=== PATIENT | female | born 1955 | race Caucasian/White ===

== ENCOUNTER → 2017-09-18 09:08 | Outpatient (CLI) | payer BC | END | disposition home or self-care (01) | LOC: D.RAD 09:08 | DX: K21.9 Gastro-esophageal reflux disease without esophagitis (principal); D64.9 Anemia, unspecified; K44.9 Diaphragmatic hernia without obstruction or gangrene ==

== ENCOUNTER 2017-10-08 08:03 | Outpatient (CLI) | payer BC | END 2017-10-08 09:25 | LOC: D.OPS 08:03 | DX: K21.9 Gastro-esophageal reflux disease without esophagitis (principal); R13.10 Dysphagia, unspecified ==

== ENCOUNTER 2018-02-04 08:35 | Inpatient (IN) | payer BC ==
[2018-02-03 09:54] LABS: BASOPHILS 0.6 % (0-2); EOSINOPHILS 1.6 % (0-7); HEMATOCRIT 40.5 % (36.0-48.0); HEMOGLOBIN 13.1 g/dL (12-16); IMMATURE GRANULOCYTES 0.2 % (0-5); LYMPHOCYTES 19.3 % (15-50); MCH 29.1 pg (26.0-34.0); MCHC 32.3 g/dL (31.0-37.0); MEAN PLATELET VOLUME 9.5 fL (7.4-10.4); MONOCYTES 9.9 % (2-11); NEUTROPHILS 68.4 % (40-80); PLATELET COUNT 301 10x3/uL (130-400); RDW 14.9 % (11.5-14.5); WBC 8.3 10x3/uL (4.8-10.8)
[2018-02-03 10:17] LABS: ANION GAP 10.2 mmol/L (8-16); CALCIUM 8.7 mg/dL (8.5-10.1); CREATININE - SERUM 1.1 mg/dL (0.6-1.3); POTASSIUM - SERUM 4.2 mmol/L (3.5-5.1)
[2018-02-04] VITALS (19 sets, daily range): BP systolic 82–133; BP diastolic 46–79; BMI 39.5; BMI 43.8
[~2018-02-04] VITALS: Ht 162.6 cm; Wt 104.5 kg
--- NOTE | ~2018-02-04 | OP ---
PATIENT NAME: ЕКАТЕРИНА GAITAN MEDICAL RECORD: [id number] :53 LOCATION:[facility] ADMISSION DATE:02/04/18 SURGEON: LONI RAMON MD DATE OF OPERATION: 02/04/2018 PREOPERATIVE DIAGNOSES: 1. Postoperative hypotension. 2. Acute anemia requiring blood transfusion. 3. Limited peripheral IV access. POSTOPERATIVE DIAGNOSES: 1. Postoperative hypotension. 2. Acute anemia requiring blood transfusion. 3. Limited peripheral IV access. PROCEDURE: Insertion of right internal jugular double-lumen central venous catheter. SURGEON: Loni Ramon MD RETAIL SALES SPECIALIST: None. BLOOD LOSS: Minimal. ANESTHESIA: Local. COMPLICATIONS: None. I was asked by the recovery room staff to place a central line as they were having difficulty obtaining a peripheral line and it appeared the patient is going to need a significant amount of intravenous fluids as well as blood products. OPERATIVE COURSE: The patient was positioned in the Trendelenburg position. The right neck was sterilely prepped and draped. A local anesthetic was used to infiltrate the skin and subcutaneous tissues at the base of the right neck. The right internal jugular vein was percutaneously accessed in an antegrade fashion. A guidewire passed easily. A small skin drew was accomplished. A vessel dilator was used to dilate the subcutaneous tract. A 16-cm double-lumen catheter was inserted to the hub. It was sutured in place times 3. All lumens flushed easily and aspirated dark, nonpulsatile blood. A stat portable chest x-ray will be obtained. I told the nursing staff that they could begin using the central venous line immediately. TRANSINT:[id number] Voice Confirmation ID: [id number] DOCUMENT ID: [id number] OPERATIVE REPORT [id number] ЕКАТЕРИНА GAITAN ROBERT MD at 1004 CC: [id number] DICTATION DATE: 02/07/18 0847 ENTRY LEVEL ELECTRICIAN: 02/07/18 0933 [facility] [place] [id number] [place] [address]
--- NOTE | ~2018-02-04 | OP ---
PATIENT NAME: ЕКАТЕРИНА GAITAN MEDICAL RECORD: [id number] :53 LOCATION:[facility] ADMISSION DATE:02/04/18 SURGEON: BEN HERNANDEZ MD DATE OF OPERATION: 02/04/2018 PREOPERATIVE DIAGNOSES: 1. Gastroesophageal reflux disease. 2. Hiatal hernia. 3. Arthritis. POSTOPERATIVE DIAGNOSES: 1. Gastroesophageal reflux disease. 2. Hiatal hernia. 3. Arthritis. PROCEDURE: Laparoscopic Keerthi with hiatal hernia repair. SURGEON: Ben Hernandez MD BOARDINGHOUSE KEEPER: Buffy Martin APRN REPORT OF PROCEDURE: The patient's abdomen was prepped and draped in sterile fashion. A Veress needle was inserted in the left upper quadrant and the abdomen was insufflated. An 11-mm Visiport trocar was then inserted in the midline just above the umbilicus. Under direct visualization, an 11-mm trocar was placed in the left lateral abdomen and a 5-mm trocar was placed in the epigastrium. The Veress needle was inspected and there was no sign of any injury to bowel or surrounding structures. A 5-mm trocar was then placed in the left lateral abdomen and a final 5-mm trocar was placed in the right lateral subcostal region. A liver retractor was inserted and the left lobe of the liver was elevated. At this point, the stomach could be easily seen progressing up through a large hiatal hernia into the chest. After we pulled this down, we noted there is about half the stomach or more, which was going through the hiatal hernia into the thoracic cavity. We began our dissection on the lesser curvature of the stomach, taking down the lesser omentum. We used Harmonic scalpel and continued our dissection up to the right side of the right indu. With release of the attachments to the right side and the right indu and began dissection of the hernia sac out of the chest cavity. We continued this dissection as far as we could go anteriorly and posteriorly. We then approached the greater curvature of the stomach and began taking down the short gastrics using Harmonic scalpel. We did this for the proximal third of the stomach. We continued this dissection to the left side of the right indu. Again, we released the attachments of the peritoneum of the hernia sac from the indu and we continued our dissection in the thoracic cavity, releasing the hernia sac. At this point, we had the hernia sac completely released. We then excised the hernia sac off of the superior aspect of the stomach. A posterior vagus nerve could be easily visualized and did not appear to be injured. I was never able to visualize the anterior vagus nerve. At this point, the stomach rested easily in the abdominal cavity along with 1 to 2 cm of the distal esophagus. We reapproximated the esophageal hiatus using interrupted 0 Polydeks times 5. There was good approximation of the tissue and did not appear to have a lot of tension. We then performed a 360-degree posterior wrap of the fundus of the stomach around the distal esophagus. This was performed with 0 Polydeks times 3 with the top and the bottom suture incorporating a bite of the esophagus. The wrap appeared to be in good position and did not appear to be too tight. An OPERATIVE REPORT [id number] ARNIEЕКАТЕРИНА indwelling OG tube was easily removed. At this point, we irrigated out the abdomen and assured there was no sign of any active bleeding. The liver retractor was then removed. We then closed the 11-mm trocar site fascias using interrupted 0 Vicryls using a Cl[place]is-Navneet suture passer device. The ports and insufflation were then removed. The wounds were then irrigated out with normal saline and the skin incisions were closed with subcutaneous 5-0 Monocryl and dressed appropriately. COMPLICATIONS: None. CONDITION: Stable. ANESTHESIA: General endotracheal and local. BLOOD LOSS: Minimal. TRANSINT:[id number] Voice Confirmation ID: [id number] DOCUMENT ID: [id number] BEN HERNANDEZ MD at 1041 CC: VICKIE WORLEY MD and RM BURTON [id number] DICTATION DATE: 02/04/18 1423 REPAIRER ENGINE PRODUCTION: 02/04/18 1440 ADM IN [facility] [address] [place] [address]
[~2018-02-04 08:35] MED LIST: CENTRUM SILVER1 TA1 PO; COLACE100 MG PO; EFFEXOR75 MG PO; FOLIC ACID1 MG PO; OMEPRAZOLE20 M1 PO; PEPCID20 MG PO; PRAVACHOL40 MG PO
[2018-02-04] MEDS ORDERED: MACROBID100 MG PO (09:29)
[2018-02-04] MEDS ORDERED: FISH OIL 1,0001 CA1 PO (09:30)
[2018-02-04] MEDS ORDERED: ATIVAN0.5 MG PO (09:31)
[2018-02-04 17:20] LABS: BASOPHILS 0.1 % (0-2); EOSINOPHILS 0.1 % (0-7); IMMATURE GRANULOCYTES 0.3 % (0-5); LYMPHOCYTES 8.1 % (15-50); MCV 90.7 fL (80.0-100.0); MEAN PLATELET VOLUME 9.7 fL (7.4-10.4); MONOCYTES 1.3 % (2-11); NEUTROPHILS 90.1 % (40-80); PLATELET COUNT 301 10x3/uL (130-400)
[2018-02-04 17:25] LABS: HEMATOCRIT 24.4 % (36.0-48.0); HEMOGLOBIN 7.8 g/dL (12-16); RBC 2.69 10x6/uL (4.00-5.40); WBC 18.7 10x3/uL (4.8-10.8)
[2018-02-04 18:00] LABS: CALCIUM 7.4 mg/dL (8.5-10.1); CARBON DIOXIDE 28.3 mmol/L (21.0-32.0); CHLORIDE - SERUM 107 mmol/L (98-107); CREATINE KINASE 84 UL (21-215); CREATININE - SERUM 1.2 mg/dL (0.6-1.3); SODIUM 140 mmol/L (136-145); UREA NITROGEN 17 mg/dL (7-18); eGFR NON AFRICAN AMERICAN 48 mL/min (90-120)
[2018-02-04 18:11] LABS: CALC OSMOLALITY 292 mosm/kg (275-300); GLUCOSE 311 mg/dL (74-106)
[2018-02-04 18:12] LABS: TROPONIN-I 0.062 ng/mL (0.000-0.060)
[2018-02-04 18:36] LABS: HEMATOCRIT 36.5 % (36.0-48.0); MCH 29.4 pg (26.0-34.0); MCHC 32.9 g/dL (31.0-37.0); MCV 89.5 fL (80.0-100.0); RBC 4.08 10x6/uL (4.00-5.40); RDW 14.2 % (11.5-14.5); WBC 23.1 10x3/uL (4.8-10.8)
[2018-02-05] VITALS (19 sets, daily range): BP systolic 93–139; BP diastolic 52–90; BMI 44.8
[2018-02-05 06:00] LABS: BASOPHILS 0.1 % (0-2); EOSINOPHILS 0 % (0-7); HEMATOCRIT 29.7 % (36.0-48.0); HEMOGLOBIN 9.8 g/dL (12-16); IMMATURE GRANULOCYTES 0.3 % (0-5); LYMPHOCYTES 5.5 % (15-50); MCH 29.3 pg (26.0-34.0); MCV 88.9 fL (80.0-100.0); MEAN PLATELET VOLUME 9.9 fL (7.4-10.4); MONOCYTES 10.2 % (2-11); NEUTROPHILS 83.9 % (40-80); PLATELET COUNT 217 10x3/uL (130-400); RBC 3.34 10x6/uL (4.00-5.40); RDW 15.4 % (11.5-14.5); WBC 17.9 10x3/uL (4.8-10.8)
[2018-02-05 06:35] LABS: CALCIUM 7.2 mg/dL (8.5-10.1); CARBON DIOXIDE 27.9 mmol/L (21.0-32.0); CHLORIDE - SERUM 109 mmol/L (98-107); CKMB 8.7 U/L (0.0-3.6); CREATININE - SERUM 1.3 mg/dL (0.6-1.3); SODIUM 144 mmol/L (136-145); UREA NITROGEN 19 mg/dL (7-18); eGFR NON AFRICAN AMERICAN 44 mL/min (90-120)
[2018-02-05 06:38] LABS: CALC OSMOLALITY 291 mosm/kg (275-300); CREATINE KINASE 326 UL (21-215); GLUCOSE 150 mg/dL (74-106); POTASSIUM - SERUM 4.9 mmol/L (3.5-5.1); TROPONIN-I 0.264 ng/mL (0.000-0.060)
[2018-02-05 16:00] LABS: HEMATOCRIT 28.4 % (36.0-48.0); HEMOGLOBIN 9.2 g/dL (12-16); MCH 29.3 pg (26.0-34.0); MCHC 32.4 g/dL (31.0-37.0); MCV 90.4 fL (80.0-100.0); MEAN PLATELET VOLUME 10.1 fL (7.4-10.4); RBC 3.14 10x6/uL (4.00-5.40); RDW 15.8 % (11.5-14.5)
[2018-02-06] VITALS (9 sets, daily range): BP systolic 97–134; BP diastolic 54–77
[2018-02-06 05:35] LABS: BASOPHILS 0.1 % (0-2); EOSINOPHILS 0 % (0-7); HEMOGLOBIN 7.6 g/dL (12-16); IMMATURE GRANULOCYTES 0.3 % (0-5); LYMPHOCYTES 11.3 % (15-50); MCH 29.7 pg (26.0-34.0); MCV 89.8 fL (80.0-100.0); MEAN PLATELET VOLUME 9.7 fL (7.4-10.4); MONOCYTES 11.3 % (2-11); RBC 2.56 10x6/uL (4.00-5.40); RDW 15.6 % (11.5-14.5); WBC 12.5 10x3/uL (4.8-10.8)
[2018-02-06 05:49] LABS: PLATELET COUNT 165 10x3/uL (130-400)
[2018-02-06 05:55] LABS: CALCIUM 7.7 mg/dL (8.5-10.1); CARBON DIOXIDE 30.8 mmol/L (21.0-32.0)
[2018-02-06 05:57] LABS: POTASSIUM - SERUM 3.8 mmol/L (3.5-5.1)
[2018-02-07] VITALS (12 sets, daily range): BP systolic 101–153; BP diastolic 59–92
[2018-02-07 06:40] LABS: BASOPHILS 0.1 % (0-2); EOSINOPHILS 0.3 % (0-7); HEMATOCRIT 30.8 % (36.0-48.0); IMMATURE GRANULOCYTES 0.4 % (0-5); LYMPHOCYTES 8.7 % (15-50); MCH 28.7 pg (26.0-34.0); MCHC 32.5 g/dL (31.0-37.0); MCV 88.5 fL (80.0-100.0); MONOCYTES 11.1 % (2-11); NEUTROPHILS 79.4 % (40-80); PLATELET COUNT 164 10x3/uL (130-400); RBC 3.48 10x6/uL (4.00-5.40); RDW 15.5 % (11.5-14.5)
[2018-02-07 07:02] LABS: ANION GAP 7.8 mmol/L (8-16); CALCIUM 8.4 mg/dL (8.5-10.1); CREATININE - SERUM 0.9 mg/dL (0.6-1.3); POTASSIUM - SERUM 3.8 mmol/L (3.5-5.1)
[2018-02-07 13:43] LABS: TROPONIN-I 0.074 ng/mL (0.000-0.060)
[2018-02-07 14:04] LABS: CKMB 1.3 U/L (0.0-3.6); CREATINE KINASE 232 UL (21-215)
[2018-02-07 14:47] LABS: HEMOGLOBIN 10.4 g/dL (12-16); MCHC 32.5 g/dL (31.0-37.0); MCV 89.1 fL (80.0-100.0); MEAN PLATELET VOLUME 9.9 fL (7.4-10.4); RBC 3.59 10x6/uL (4.00-5.40); RDW 15.2 % (11.5-14.5); WBC 12.9 10x3/uL (4.8-10.8)
[2018-02-07 14:48] LABS: APTT 29.4 SECONDS (22.8-39.4); INR 1.04 (0.85-1.17); PROTIME 13.2 SECONDS (11.6-15.0)
[2018-02-07 15:43] LABS: HEMOGLOBIN 10.1 g/dL (12-16); MCH 29.1 pg (26.0-34.0); MCHC 32.6 g/dL (31.0-37.0); MCV 89.3 fL (80.0-100.0); MEAN PLATELET VOLUME 9.7 fL (7.4-10.4); RBC 3.47 10x6/uL (4.00-5.40); RDW 15.1 % (11.5-14.5); WBC 12.9 10x3/uL (4.8-10.8)
[2018-02-07 15:55] LABS: INR 1.06 (0.85-1.17); PROTIME 13.4 SECONDS (11.6-15.0)
[2018-02-07 15:56] LABS: APTT 28.5 SECONDS (22.8-39.4)
[2018-02-08] VITALS (24 sets, daily range): BP systolic 101–144; BP diastolic 57–83
[2018-02-08 05:43] LABS: BASOPHILS 0 % (0-2); EOSINOPHILS 0 % (0-7); HEMATOCRIT 29.9 % (36.0-48.0); HEMOGLOBIN 9.7 g/dL (12-16); IMMATURE GRANULOCYTES 0.3 % (0-5); LYMPHOCYTES 8.1 % (15-50); MCHC 32.4 g/dL (31.0-37.0); MCV 89.5 fL (80.0-100.0); MEAN PLATELET VOLUME 9.6 fL (7.4-10.4); MONOCYTES 7.4 % (2-11); NEUTROPHILS 84.2 % (40-80); PLATELET COUNT 185 10x3/uL (130-400); RBC 3.34 10x6/uL (4.00-5.40); RDW 14.8 % (11.5-14.5); WBC 12.9 10x3/uL (4.8-10.8)
[2018-02-08 06:06] LABS: CALC OSMOLALITY 280 mosm/kg (275-300); CALCIUM 8.5 mg/dL (8.5-10.1); CARBON DIOXIDE 34.4 mmol/L (21.0-32.0); CHLORIDE - SERUM 104 mmol/L (98-107); CREATININE - SERUM 0.8 mg/dL (0.6-1.3); GLUCOSE 115 mg/dL (74-106); POTASSIUM - SERUM 3.6 mmol/L (3.5-5.1); SODIUM 140 mmol/L (136-145); UREA NITROGEN 16 mg/dL (7-18); eGFR NON AFRICAN AMERICAN 76 mL/min (90-120)
[2018-02-08 06:27] LABS: INR 1.05 (0.85-1.17); PROTIME 13.3 SECONDS (11.6-15.0)
[2018-02-08 06:28] LABS: APTT 54.6 SECONDS (22.8-39.4)
[2018-02-09] VITALS (21 sets, daily range): BP systolic 110–163; BP diastolic 63–93
[2018-02-09 04:47] LABS: BASOPHILS 0.2 % (0-2); HEMATOCRIT 32.4 % (36.0-48.0); HEMOGLOBIN 10.2 g/dL (12-16); IMMATURE GRANULOCYTES 0.3 % (0-5); LYMPHOCYTES 11.8 % (15-50); MCH 28.6 pg (26.0-34.0); MCHC 31.5 g/dL (31.0-37.0); MCV 90.8 fL (80.0-100.0); MEAN PLATELET VOLUME 9.2 fL (7.4-10.4); MONOCYTES 9.7 % (2-11); RBC 3.57 10x6/uL (4.00-5.40); RDW 14.7 % (11.5-14.5); WBC 12.6 10x3/uL (4.8-10.8)
[2018-02-09 05:04] LABS: PLATELET COUNT 226 10x3/uL (130-400)
[2018-02-09 05:12] LABS: PROTIME 12.8 SECONDS (11.6-15.0)
[2018-02-09 05:14] LABS: CALCIUM 8.5 mg/dL (8.5-10.1); CARBON DIOXIDE 35.4 mmol/L (21.0-32.0); CREATININE - SERUM 0.9 mg/dL (0.6-1.3); POTASSIUM - SERUM 3.4 mmol/L (3.5-5.1)
[2018-02-09 05:16] LABS: APTT 57.1 SECONDS (22.8-39.4)
[2018-02-10 03:00] VITALS: BP 119/65
[2018-02-10 05:51] LABS: BASOPHILS 0.2 % (0-2); EOSINOPHILS 3.9 % (0-7); HEMOGLOBIN 11.2 g/dL (12-16); IMMATURE GRANULOCYTES 1.1 % (0-5); LYMPHOCYTES 12.9 % (15-50); MCH 29.8 pg (26.0-34.0); MCHC 32.9 g/dL (31.0-37.0); MCV 90.4 fL (80.0-100.0); MEAN PLATELET VOLUME 9.5 fL (7.4-10.4); MONOCYTES 11.1 % (2-11); NEUTROPHILS 70.8 % (40-80); PLATELET COUNT 225 10x3/uL (130-400); RBC 3.76 10x6/uL (4.00-5.40); RDW 14.9 % (11.5-14.5); WBC 9.5 10x3/uL (4.8-10.8)
[2018-02-10 06:03] LABS: CALC OSMOLALITY 278 mosm/kg (275-300); CALCIUM 8.3 mg/dL (8.5-10.1); CARBON DIOXIDE 34.8 mmol/L (21.0-32.0); CHLORIDE - SERUM 103 mmol/L (98-107); CREATININE - SERUM 0.8 mg/dL (0.6-1.3); GLUCOSE 113 mg/dL (74-106); POTASSIUM - SERUM 3.2 mmol/L (3.5-5.1); SODIUM 139 mmol/L (136-145); eGFR NON AFRICAN AMERICAN 76 mL/min (90-120)
[2018-02-10 06:04] LABS: UREA NITROGEN 12 mg/dL (7-18)
[2018-02-10 06:07] LABS: INR 0.94 (0.85-1.17); PROTIME 12.2 SECONDS (11.6-15.0)
[2018-02-10 06:21] LABS: APTT 59.1 SECONDS (22.8-39.4)
[2018-02-10 08:49] VITALS: BP 148/70; BMI 31.8
[2018-02-10 09:04] VITALS: BP 103/72
[2018-02-10 13:13] VITALS: BP 165/84
[2018-02-10 20:00] VITALS: BP 156/80
[2018-02-11 04:27] VITALS: BP 127/70
[2018-02-11 05:33] LABS: BASOPHILS 0.3 % (0-2); EOSINOPHILS 3.2 % (0-7); HEMOGLOBIN 10.9 g/dL (12-16); IMMATURE GRANULOCYTES 1.2 % (0-5); LYMPHOCYTES 10.6 % (15-50); MCH 28.9 pg (26.0-34.0); MCHC 32.1 g/dL (31.0-37.0); MCV 90.2 fL (80.0-100.0); MEAN PLATELET VOLUME 9.5 fL (7.4-10.4); MONOCYTES 10.4 % (2-11); NEUTROPHILS 74.3 % (40-80); PLATELET COUNT 223 10x3/uL (130-400); RBC 3.77 10x6/uL (4.00-5.40); WBC 10.3 10x3/uL (4.8-10.8)
[2018-02-11 05:44] LABS: CALC OSMOLALITY 277 mosm/kg (275-300); CALCIUM 8.3 mg/dL (8.5-10.1); CARBON DIOXIDE 33.3 mmol/L (21.0-32.0); CHLORIDE - SERUM 103 mmol/L (98-107); CREATININE - SERUM 0.8 mg/dL (0.6-1.3); GLUCOSE 117 mg/dL (74-106); POTASSIUM - SERUM 3.3 mmol/L (3.5-5.1); SODIUM 139 mmol/L (136-145); UREA NITROGEN 11 mg/dL (7-18); eGFR NON AFRICAN AMERICAN 76 mL/min (90-120)
[2018-02-11 09:49] VITALS: BP 141/65
[2018-02-11 12:45] VITALS: BP 158/71
[2018-02-11 13:28] VITALS: BP 124/84; Ht 162.6 cm; Wt 104.5 kg
[2018-02-11 20:35] VITALS: BP 144/71
[2018-02-12 03:51] VITALS: BP 121/79
[2018-02-12 04:35] LABS: BASOPHILS 0.1 % (0-2); EOSINOPHILS 3.7 % (0-7); HEMATOCRIT 34.4 % (36.0-48.0); IMMATURE GRANULOCYTES 1.5 % (0-5); LYMPHOCYTES 11.2 % (15-50); MCH 28.7 pg (26.0-34.0); MCV 89.8 fL (80.0-100.0); MEAN PLATELET VOLUME 9.4 fL (7.4-10.4); MONOCYTES 12.6 % (2-11); NEUTROPHILS 70.9 % (40-80); PLATELET COUNT 229 10x3/uL (130-400); RBC 3.83 10x6/uL (4.00-5.40); RDW 15.5 % (11.5-14.5); WBC 10.1 10x3/uL (4.8-10.8)
[2018-02-12 04:45] LABS: CALC OSMOLALITY 279 mosm/kg (275-300); CALCIUM 7.7 mg/dL (8.5-10.1); CARBON DIOXIDE 29.3 mmol/L (21.0-32.0); CHLORIDE - SERUM 106 mmol/L (98-107); CREATININE - SERUM 0.7 mg/dL (0.6-1.3); GLUCOSE 102 mg/dL (74-106); SODIUM 141 mmol/L (136-145); UREA NITROGEN 9 mg/dL (7-18); eGFR NON AFRICAN AMERICAN 89 mL/min (90-120)
[2018-02-12] MEDS ORDERED: ELIQUIS5 MG PO (08:27)
[2018-02-12 08:28] VITALS: BP 138/83
[2018-02-12 12:20] LABS: APPEARANCE HAZY (CLEAR); BILIRUBIN NEGATIVE (NEGATIVE); COLOR DK YELLOW (YELLOW); GLUCOSE NEGATIVE (NEGATIVE); KETONE NEGATIVE (NEGATIVE); NITRITE NEGATIVE (NEGATIVE); PROTEIN NEGATIVE (NEGATIVE); SPECIFIC GRAVITY 1.005 (1.005-1.020)
[2018-02-12 12:24] LABS: BACTERIA MODERATE /hpf (NONE SEEN); EPITHELIAL CELLS 0-5 /hpf (0-5); MUCUS <1+ /lpf (NONE SEEN); RED CELLS - URINE 0-5 /hpf (0-5); WHITE CELLS - URINE 0-5 /hpf (0-5); YEAST <1+ /hpf (NONE SEEN)
== END 2018-02-12 11:59 | disposition home or self-care (01) | DRG 907 ==
LOC: D.OPS 08:35 → D.MS 15:59 → D.CVICU 17:16 → D.OPS 18:11 → D.MS 02-06 16:30 → D.ICU 02-07 13:21 → D.MS 02-10 06:50
PROVIDERS: Anesthesiology; Surgery
PROC: 0BQT4ZZ Repair Diaphragm, Percutaneous Endoscopic Approach (ICD-10-PCS; principal; 2018-02-04 10:45)
PROC: 05HM33Z Insertion of Infusion Device into Right Internal Jugular Vein, Percutaneous Approach (ICD-10-PCS; 2018-02-04 10:45)
DX: K91.840 Postprocedural hemorrhage of a digestive system organ or structure following a digestive system procedure (principal); I26.99 Other pulmonary embolism without acute cor pulmonale; D62 Acute posthemorrhagic anemia; K44.9 Diaphragmatic hernia without obstruction or gangrene; I95.9 Hypotension, unspecified; R00.0 Tachycardia, unspecified; K21.9 Gastro-esophageal reflux disease without esophagitis; M19.90 Unspecified osteoarthritis, unspecified site; T50.8X5A Adverse effect of diagnostic agents, initial encounter; Y83.8 Other surgical procedures as the cause of abnormal reaction of the patient, or of later complication, without mention of misadventure at the time of the procedure